=== PATIENT | female | born 1990 | race Hispanic/Latino ===

== ENCOUNTER 2024-06-10 01:08 | Emergency (ER) | payer SELFPAY ==
--- NOTE | 2024-06-10 01:36 | ERN ---
ED Note History of Present Illness Stated Complaint: NAUSEA/VOMITING/DIARRHEA Chief Complaint: Nausea,Vomiting,Diarrhea Time Seen by MD: 01:11 Dictation: This is a 34-year-old female who came via EMS stating that after she went to sleep she suddenly woke up with severe cramping of the abdomen went to defecate. She also started vomitings after which she felt extremely weak and called EMS for evaluation No fevers chills rigors. No other family members are sick. She did not eat in any restaurants. Her last menstrual period was 3 weeks ago Temperature 98.1, pulse 99 respirations 16 blood pressure 110/77, pulse oximetry 99% on room air Allergies: Coded Allergies: No Known Drug Allergies (Unverified Allergy, Unknown, 09/28/15) Past Medical History Past Medical History: No Pertinent History Surgical History: None Family History: Negative Social History: Negative : 6 Para: 6 RN Note Reviewed/Agreed w/PFSH: Yes Review of System Dictation Constitutional: Negative for fever,chills, and weight loss Eyes: Negative for injury, pain,redness, and discharge ENT: Negative for injury,pain or swelling Cardiovascular: Negative for chest pain, palpitations, and edema Respiratory: Negative for shortness of breath, cough, and wheezing, Abdomen/GI: Positive for abdominal pain, nausea, vomiting, diarrhea, Back: Negative for injury and pain : Negative for injury, bleeding and discharge MS/Extremity: Negative for injury and deformity Skin: Negative for rash, and discoloration Neuro: Negative for headache, weakness, numbness, tingling, and seizure Psych: Negative for suicide ideation, homicidal ideation, and hallucinations Initial Vital Sign VS Vital Signs Date Time Temp Pulse Resp B/P (MAP) Pulse Ox O2 Delivery O2 Flow Rate FiO2 06/10/24 01:09 98.1 99 16 110/77 99 Room Air 0 06/10/24 01:30 21 Physical Exam Dictation General: awake, alert, NAD overweight Head/Face: Normocephalic, atraumatic Eyes: PERRL, EOMI, vision at baseline ENT: oral cavity clear, TMs clear, no signs of infection Neck: Trachea midline, supple, no nuchal rigidity Cardiovascular: RRR, normal S1/S2, No MRGs, no JVD Respiratory: CTAB, no respiratory distress, No rales or wheezes Abdomen: Soft, non-tender, non-distended, normal bowel sounds, no guarding or rebound. Skin: Warm, dry, normal turgor, no rash MS/Extremity: Pulses equal, no cyanosis, neurovascular intact, FROM Neuro: COAx4, GCS 15, strength 5/5, CN 2-12 intact, normal cerebellar exam, normal gait, Psych: Normal behavior, mood, and affect normal Extremities-trace edema without any palpable cords, Homans sign is negative Results (Laboratory/Radiology) Laboratory/Radiology Laboratory Tests Test 06/10/24 01:33 White Blood Count 9.8 K/uL (4.8-10.8) Red Blood Count 3.65 MIL/uL (4.00-5.50) L Hemoglobin 8.2 g/dL (12.0-16.0) L Hematocrit 27.6 % (36-48) L Mean Corpuscular Volume 75.6 fL (79-99) L Mean Corpuscular Hemoglobin 22.5 pg (27.0-33.0) L Mean Corpuscular Hemoglobin Concent 29.7 g/dL (32.0-36.0) L Red Cell Distribution Width 17.7 % (11.0-15.5) H Platelet Count 408 K/uL (130-400) H Mean Platelet Volume 9.7 fL (7.5-10.5) Immature Granulocyte % (Auto) 0.4 % (0-1) Neutrophils (%) (Auto) 64.3 % (40.0-77.0) Lymphocytes (%) (Auto) 20.3 % (21.0-51.0) L Monocytes (%) (Auto) 9.1 % (3.0-13.0) Eosinophils (%) (Auto) 5.1 % (0.0-8.0) Basophils (%) (Auto) 0.8 % (0.0-5.0) Neutrophils # (Auto) 6.3 K/uL (1.8-7.7) Lymphocytes # (Auto) 2.0 K/uL (1.0-4.8) Monocytes # (Auto) 0.9 K/uL (0.1-1.0) Eosinophils # (Auto) 0.50 K/uL (0.00-0.70) Basophils # (Auto) 0.08 K/uL (0.00-0.20) Absolute Immature Granulocyte (auto 0.04 K/uL (0-1) Nucleated Red Blood Cells 0.0 % (0.0-0.19) Red Blood Cell Morphology See comments Sodium Level 137 mmol/L (136-145) Potassium Level 4.1 mmol/L (3.5-5.1) Chloride Level 101 mmol/L (101-111) Carbon Dioxide Level 27 mmol/L (21-32) Blood Urea Nitrogen 14 mg/dL (7-18) Creatinine 0.6 mg/dL (0.5-1.0) Glomerular Filtration Rate Calc 120 mL/min (>90) Random Glucose 110 mg/dL (70-105) H Total Calcium 8.8 mg/dL (8.5-10.1) Lipase 52 U/L (16-77) Labs Reviewed?: Yes ED Course ED Course Orders Procedure Category Date Status Time Cbc With Differential LAB 06/10/24 Complete 01:13 Basic Metabolic Panel LAB 06/10/24 Complete 01:13 Urinalysis Profile LAB 06/10/24 Logged 01:13 ,Urine Test LAB 06/10/24 Logged 01:13 Lactated Ringers PHA 06/10/24 In Process 1000ml (Lactated 01:30 Ondansetron 4mg Inj PHA 06/10/24 Complete (Zofran 4mg Inj) 01:30 Famotidine 20mg Vial PHA 06/10/24 Complete (Pepcid 20mg Vial) 01:30 Lipase LAB 06/10/24 Complete 01:13 Current Medications Medications (Trade) Dose Ordered Sig/Staci Route PRN Reason Start Time Stop Time Status Last Admin Dose Admin Famotidine (Pepcid 20mg Vial) 20 mg ONCE ONCE IV 06/10/24 01:30 06/10/24 01:31 DC 06/10/24 02:13 Lactated Ringer's 1,000 ml @ 125 mls/hr ONCE ONCE IV 06/10/24 01:30 06/10/24 09:29 06/10/24 02:13 Ondansetron HCl (zoFRAN 4MG INJ) 4 mg ONCE ONCE IVP 06/10/24 01:30 06/10/24 01:31 DC 06/10/24 02:13 Vital Signs Date Time Temp Pulse Resp B/P (MAP) Pulse Ox O2 Delivery O2 Flow Rate FiO2 06/10/24 01:30 97.9 96 18 100/65 100 Room Air* 0 21 06/10/24 01:09 98.1 99 16 110/77 99 Room Air 0 We will perform diagnostic labs, advanced imaging and administer medications according to the patient's complaint. Once the results are available, will review and personally interpreted the labs to rule out any acute life- threatening emergency the trach require immediate intervention and treatment. I will then re-evaluate the patient after treatment and diagnostic exams have return to determine whether the patient requires any further testing, can safely be discharged home or need further admission to hospital for additional treatment and evaluation. Reviewed labs BNP 7 is within normal limits lipase 52 glucose 110. CBC was significant for a hemoglobin of 8.2 2:39 a.m.-patient feels significantly improved on symptomatic management and I educated her on anemia and to follow up with the primary care to get detail workup to see what type of anemia and be initiated on iron pills if necessary she verbalized full understanding Medical Decision Making MDM MDM: Differential diagnosis: Food poisoning, viral gastroenteritis, sepsis, Rationale: Tests considered and ordered secondary to shared decision making include: Previous outside records reviewed: Old ER visits. Risk of complication and/or morbidity or mortality of patient management: None Medications-Per medication reconciliation Need for hospitalization: Patient does not meet criteria for hospitalization. Need for emergency major/minor surgery: No There are no social concerns with this patient. Prescription drug management Prescriptions will include symptomatic care Patient's prior external medical records from other ER visits were reviewed by me as indicated. Prior testing and results from previous visits were reviewed. Prior tests were taken into account with medical decision making and resource utilization, independent historian/historians were used to obtain complete medical history. I independently interpreted the test that were performed, results were reviewed by me and considered findings on radiology if ordered. Medical management and examination interpretation discussions were had by me with other qualified healthcare professionals as indicated for the patient's care. Problem List Problem List: (1) Food poisoning (2) Nausea vomiting and diarrhea (3) Anemia DX & DISP Disposition: Discharge Departure Impression: Primary Impression: Nausea vomiting and diarrhea Additional Impressions: Food poisoning, Anemia Condition: Stable Additional Instructions: Patient and the caregiver have been informed of all the diagnostic tests and the imaging conducted during the today's visit to the emergency room and has verbalized understanding of the results I have personally reviewed and interpreted all diagnostic exams performed here in the ER today as well as the vital signs documented by the nursing staff. The patient is now being discharged to home and should follow up with the primary care physician or the specialist as directed by the ER staff. Follow-up with primary care provider in 1 to 2 days. Take medications as directed here in the emergency room. Okay to continue home medications unless otherwise discussed during your visit in the emergency room today. Return to your nearest emergency room if symptoms worsen or if there is no improvement. Call 911 if you need immediate assistance. Take Tylenol [id number] as n eeded and if no contraindications are present. Increase oral hydration. A wound culture or urine culture was ordered here in the emergency room department please follow-up with primary care provider and advise them to get repeat ports from our facility. I went over her labs and severe anemia and we do not have any old labs to compare and she is unaware of any numbers. She has a primary care physician and I instructed her to follow up for anemia evaluation and initiating perhaps iron or B12 or folate as needed. Referrals: JULIETH ESTEVEZ MD (PCP) JANINE PURI MD Jun 10, 2024 01:36
[2024-06-10 01:40] LABS: BASOPHILS # (AUTO) 0.08 K/uL (0.00-0.20); BASOPHILS % (AUTO) 0.8 % (0.0-5.0); EOSINOPHILS % (AUTO) 5.1 % (0.0-8.0); HEMATOCRIT 27.6 % (36-48); IMMATURE GRANULOCYTE ABSOLUTE 0.04 K/uL (0-1); LYMPHOCYTES % (AUTO) 20.3 % (21.0-51.0); MEAN CORPUSCULAR HEMOGLOBIN 22.5 pg (27.0-33.0); MEAN CORPUSCULAR HGB CONC 29.7 g/dL (32.0-36.0); MEAN CORPUSCULAR VOLUME 75.6 fL (79-99); MONOCYTES # (AUTO) 0.9 K/uL (0.1-1.0); MONOCYTES % (AUTO) 9.1 % (3.0-13.0); NEUTROPHILS # (AUTO) 6.3 K/uL (1.8-7.7); NEUTROPHILS % (AUTO) 64.3 % (40.0-77.0); PLATELET COUNT (AUTO) 408 K/uL (130-400); RED BLOOD CELL COUNT(AUTO) 3.65 MIL/uL (4.00-5.50); RED CELL DISTRIBUTION WIDTH 17.7 % (11.0-15.5); WHITE BLOOD COUNT (AUTO) 9.8 K/uL (4.8-10.8)
[2024-06-10 01:50] LABS: CREATININE 0.6 mg/dL (0.5-1.0); POTASSIUM 4.1 mmol/L (3.5-5.1)
[2024-06-10] MEDS: ondanSETRON 4MG INJ IVP ONE (02:13)
[2024-06-10] MEDS: LACTATED RINGERS 1000ML 1,000 ML IV ONE (02:13)
[2024-06-10] MEDS: FAMOTIDINE 20MG VIAL IV ONE (02:13)
[2024-06-10 02:41] LABS: APPEARANCE,URINE CLOUDY (CLEAR); BILIRUBIN,URINE NEGATIVE (NEGATIVE); COLOR,URINE LIGHT-YELLOW (YELLOW); GLUCOSE, URINE (UA) NEGATIVE (NEGATIVE); KETONES,URINE NEGATIVE (NEGATIVE); LEUKOCYTE ESTERASE ,URINE NEGATIVE Leu/uL (NEGATIVE); NITRATE,URINE NEGATIVE (NEGATIVE); OCCULT BLOOD,URINE NEGATIVE (NEGATIVE); PH,URINE 5.5 (5.0-8.0); PROTEIN,URINE NEGATIVE (NEGATIVE); UROBILINOGEN,URINE 0.2 mg/dL (0.2-1.0)
[2024-06-10 02:43] LABS: ADD UA MICROSCOPIC YES; HCG,QUALITATIVE URINE NEGATIVE (NEGATIVE)
[2024-06-10 02:44] LABS: BACTERIA,URINE FEW /HPF (None Seen); MUCUS,URINE RARE LPF (None Seen); RBC,URINE 0-1 /HPF (0-1); SQUAMOUS EPITHELIAL CELL,UR MOD /HPF (0-2)
[2024-06-10 03:55] VITALS: BP 115/68; PULSE 86; RESP 18; TEMP 98; O2SAT 99
== END 2024-06-10 04:06 | disposition home or self-care (01) ==
LOC: EDH 01:08
DX: A05.9 Bacterial foodborne intoxication, unspecified (principal); D64.9 Anemia, unspecified; R11.2 Nausea with vomiting, unspecified; R19.7 Diarrhea, unspecified
CPT/HCPCS: 99284; 96374; 96361; 96375; 80048; 83690; 85025; 81001; 81025; 36415; J7120; J3490; J2405